=== PATIENT | female | born 1950 | race Caucasian/White ===

== ENCOUNTER 2018-03-10 08:34 | Emergency (ER) | payer MEDICARE ==
--- NOTE | 2018-03-10 10:30 | RAD ---
RIGHT KNEE 4 VIEWS: Date: 03/10/18 HISTORY: Injury with pain. FINDINGS: There are degenerative changes at the knee. Spurring from the tibial condyles, femoral condyles, tibi al spines, and patella noted. No evidence of joint effusion. The medial and lateral joint spaces are preserved. IMPRESSION: Mild to moderate degenerative changes of right knee as described. POS: [facility]
== END 2018-03-10 09:42 | disposition home or self-care (01) ==
LOC: ERS 08:34
DX: M25.561 Pain in right knee (principal); E03.9 Hypothyroidism, unspecified; M19.90 Unspecified osteoarthritis, unspecified site; F17.210 Nicotine dependence, cigarettes, uncomplicated; Z79.899 Other long term (current) drug therapy; X50.1XXA Overexertion from prolonged static or awkward postures, initial encounter; Y93.01 Activity, walking, marching and hiking

== ENCOUNTER 2018-03-26 09:30 | Outpatient (CLI) | payer MEDICARE | END 2018-03-26 09:31 | disposition home or self-care (01) | LOC: BICMRI 09:30 | PROVIDERS: ATTEND Orthopaedic Surgery | DX: M25.561 Pain in right knee (principal); M17.11 Unilateral primary osteoarthritis, right knee ==

== ENCOUNTER 2018-08-12 11:14 | Outpatient (CLI) | payer MEDICARE ==
[2018-08-12 12:45] LABS: Hemoglobin 15.3 g/dL (12.0-16.0); Mean Corpuscular HGB CONC 33.5 g/dL (32.0-36.0); Mean Corpuscular Hemoglobin 31.4 pg (27.0-31.0); Mean Corpuscular Volume 93.6 fL (78.0-98.0); Mean Platelet Volume 8.1 fL (7.4-10.4); Platelet Count 222 thou/uL (130-400); RBC Distribution Width 12.6 % (11.5-14.5); Red Blood Cell (RBC) Count 4.88 mill/uL (4.20-5.40); White Blood Cell (WBC) Count 7.7 thou/uL (4.8-10.8)
[2018-08-12 12:49] LABS: Bilirubin Negative (Negative); Blood, Urine Negative (Negative); Clarity CLEAR (Clear); Glucose, Urine (Dipstick) Negative (Negative); Leukocyte Negative (Negative); Nitrite Negative (Negative); Protein, Urine (Dipstick) Negative (Neg-Trace); Specific Gravity, Urine 1.008 (1.002-1.036); Urobilinogen 0.2 mg/dL (0.2-1.0); pH, Urine 6.5 (5.0-9.0)
[2018-08-12 12:51] LABS: Bacteria/HPF 1+ HPF (None Seen); Hyaline Casts/LPF 0-3 HYALINE CAST LPF (0-3 Hyaline); Pathc Cast-AUWi Flag 0.72 (0-2.49); RBC/HPF 0-3 HPF (0-3); Squamous Epithelial 0-3 HPF (0-3); WBC/HPF 0-3 HPF (0-3)
[2018-08-12 13:00] LABS: INR-International Normal Ratio 0.9; Prothrombin Time 11.9 SEC (12.0-14.7)
[2018-08-12 13:08] LABS: Anion Gap 12 mmol/L (10-20); BUN (Urea Nitrogen) 15 mg/dL (9.8-20.1); Calc. Creatinine Clearance 0 mL/min (70-130); Calcium 9.5 mg/dL (7.8-10.44); Carbon Dioxide 27 mmol/L (23-31); Chloride 104 mmol/L (98-107); Estimated GFR-MDRD 73; Glucose 91 mg/dL (80-115); Potassium 4.1 mmol/L (3.5-5.1); Sodium 139 mmol/L (136-145)
--- NOTE | 2018-08-12 14:18 | RAD ---
TWO VIEWS OF THE CHEST: DATE: 08/12/2018. COMPARISON: None available. HISTORY: Preoperative patient. FINDINGS: Mild degenerative change of the thoracic spine. No pneumothorax, pleural fluid, focal consolidation, or alveolar edema. IMPRESSION: No acute findings. POS: [facility]
== END 2018-08-12 11:15 | disposition home or self-care (01) ==
LOC: LABBT 11:14
PROVIDERS: ATTEND Orthopaedic Surgery
DX: Z01.818 Encounter for other preprocedural examination (principal); M17.11 Unilateral primary osteoarthritis, right knee
CPT/HCPCS: 71046; 80048; 81001; 85027; 85610; 85730; 87081; 87086; 93005; 93010

== ENCOUNTER 2018-08-12 11:15 | Inpatient (IN) | payer MEDICARE ==
[2018-08-12 11:40] VITALS: BMI 32.5
[2018-08-26] MEDS ORDERED: CEFAZOLIN/Water 2 GM/20 ML SYRINGE ONE (10:33)
[2018-08-26] MEDS ORDERED: CEFAZOLIN 1 GM VIAL ONE (10:33)
[2018-08-26] MEDS ORDERED: Vancomycin HCl 1.5 GM in Sodium Chloride 0.9% 250 ML 300 ML IVPB SCH (10:45)
[2018-08-26] MEDS ORDERED: Scopolamine 1.5 mg/72 hour Patch ONE (11:10)
[2018-08-26] MEDS ORDERED: Fentanyl 100 MCG/2 ML VIAL ONE ×4 (11:32→16:11)
[2018-08-26] MEDS ORDERED: Midazolam HCl 2 mg/2 ml Vial ONE (11:32)
[2018-08-26] MEDS ORDERED: Ondansetron HCl/PF 4 MG/2 ML Vial IVP PRN ×2 (13:32→14:16)
[2018-08-26] MEDS ORDERED: traMADol HCl 50 MG TAB PO PRN ×4 (13:32→15:26)
[2018-08-26] MEDS ORDERED: Ropivacaine HCl/PF 250 ML in Premix Bag 1 BAG NERVE BLCK SCH (13:32)
[2018-08-26] MEDS ORDERED: Promethazine HCl 25 MG/ML VIAL IM PRN ×3 (13:32→16:07)
[2018-08-26] MEDS ORDERED: Ropivacaine HCl/PF 125 ML in Sodium Chloride 0.9% 125 ML NERVE BLCK SCH (13:32)
[2018-08-26] MEDS ORDERED: Zolpidem Tartrate 5 MG TAB PO PRN ×2 (13:32→16:07)
[2018-08-26] MEDS ORDERED: HYDROcodone/Acetaminophen 10/325 mg Tablet PO PRN ×4 (13:32→15:24)
[2018-08-26] MEDS ORDERED: Fentanyl 100 MCG/2 ML VIAL IV PRN (13:34)
[2018-08-26] MEDS ORDERED: Promethazine HCl 25 MG/ML VIAL SLOW IVP PRN (14:16)
[2018-08-26] MEDS ORDERED: Bupivacaine 0.25% HCL 30 ML VIAL ONE (14:19)
[2018-08-26] MEDS ORDERED: Ropivacaine 0.5% HCl/PF (150 MG/30 ML VIAL) ONE (14:19)
[2018-08-26] MEDS ORDERED: PROPOFOL 200 MG/20 ML VIAL ONE (14:47)
[2018-08-26] MEDS ORDERED: Ondansetron HCl/PF 4 MG/2 ML Vial ONE (14:47)
[2018-08-26] MEDS ORDERED: Cepastat Lozenges 1 LOZ PO PRN (15:24)
[2018-08-26] MEDS ORDERED: Ondansetron HCl/PF 4 MG/2 ML Vial IM PRN (15:24)
[2018-08-26] MEDS ORDERED: Acetaminophen 325 MG TAB PO PRN (15:24)
[2018-08-26] MEDS ORDERED: Bisacodyl 10 MG SUPP PR PRN (15:24)
[2018-08-26] MEDS ORDERED: Milk Of Magnesia 30 ML UDCUP PO PRN (15:24)
[2018-08-26] MEDS ORDERED: Fentanyl 100 MCG/2 ML VIAL SLOW IVP PRN ×2 (15:24)
[2018-08-26] MEDS ORDERED: Promethazine HCl 25 MG/ML VIAL ONE (15:33)
[2018-08-26] MEDS ORDERED: diphenhydrAMINE 25 MG CAP PO PRN (16:07)
[2018-08-26] MEDS ORDERED: fentaNYL Citrate/PF 2,000 MCG in Sodium Chloride 0.9% 60 ML IV PRN (16:07)
[2018-08-26] MEDS ORDERED: diphenhydrAMINE 50 MG/ML VIAL IM PRN (16:07)
[2018-08-26] MEDS ORDERED: Naloxone HCl 0.4 mg/ml Vial IV PRN (16:07)
[2018-08-26] MEDS ORDERED: diphenhydrAMINE 50 MG/ML VIAL IVP PRN (16:07)
[2018-08-26] MEDS ORDERED: Communication Order-Pharmacy FS SCH (16:15)
--- NOTE | 2018-08-26 17:19 | RAD ---
RIGHT KNEE TWO VIEWS: HISTORY: Status post right knee arthroplasty. TECHNIQUE: AP and lateral views of the right knee are obtained. FINDINGS: Femoral and tibial components are in good position. No evidence of fractures or loosening seen. Art hroplasty is in good position. IMPRESSION: Status post right knee arthroplasty. POS: [facility]
[2018-08-26] MEDS ORDERED: Benzonatate 100 MG CAP PO PRN (17:30)
[2018-08-26] MEDS ORDERED: Diabetic Tussin 200 MG/10 ML UDCUP PO PRN (17:30)
[2018-08-26] MEDS ORDERED: hydrALAZINE 20 MG/ML VIAL SLOW IVP PRN (17:30)
[2018-08-26] MEDS ORDERED: Acetaminophen 500 MG TAB PO PRN (17:30)
[2018-08-26] MEDS ORDERED: cloNIDine 0.1 MG TAB PO PRN (17:30)
[2018-08-26] MEDS ORDERED: Ketorolac Tromethamine 30 MG/ML VIAL IVP SCH (18:00)
[2018-08-26] MEDS: Ondansetron HCl/PF 4 MG/2 ML Vial IVP PRN (18:29)
[2018-08-26] MEDS: Ketorolac Tromethamine 30 MG/ML VIAL IVP SCH (18:29)
[2018-08-26 19:10] LABS: Bilirubin Negative (Negative); Blood, Urine Negative (Negative); Clarity CLEAR (Clear); Glucose, Urine (Dipstick) Negative (Negative); Leukocyte Negative (Negative); Nitrite Negative (Negative); Protein, Urine (Dipstick) Negative (Neg-Trace); Specific Gravity, Urine 1.019 (1.002-1.036); Urobilinogen 0.2 mg/dL (0.2-1.0)
[2018-08-26] MEDS: CEFAZOLIN/Water 2 GM/20 ML SYRINGE SLOW IVP SCH (19:30)
[2018-08-26] MEDS: Aspirin 81 mg Enteric Coated Tablet PO SCH (20:33)
[2018-08-26] MEDS: Calcium Carbonate 600 MG TAB PO SCH (20:33)
[2018-08-26] MEDS: Pregabalin 75 MG CAP PO SCH (20:35)
[2018-08-26] MEDS ORDERED: AREDS PO SCH (21:00)
--- NOTE | 2018-08-26 21:06 | PDOC.PN ---
- Subjective Encounter Start Date: 08/26/18 Encounter Start Time: 21:04 Subjective: S/P R TKR.feels well -: pain under control w fentanyl pump. -: PCP Dr rivera - Objective MAR Reviewed: Yes Vital Signs & Weight: Vital Signs (12 hours) Temp Pulse Resp BP Pulse Ox 08/26/18 19:48 98 F 60 16 118/73 96 08/26/18 18:55 96 08/26/18 17:00 97.8 F 57 L 16 163/83 H 97 Weight Weight 214 lb Phys Exam - Physical Examination Constitutional: NAD HEENT: PERRLA, moist MMs, sclera anicteric, oral pharynx no lesions Neck: no nodes, no JVD, supple, full ROM Respiratory: no wheezing, no rales, no rhonchi, clear to auscultation bilateral Cardiovascular: RRR, no significant murmur, no rub Gastrointestinal: soft, non-tender, no distention, positive bowel sounds Musculoskeletal: no edema, pulses present Neurological: non-focal, normal sensation, moves all 4 limbs Psychiatric: normal affect, A&O x 3 Dx/Plan (1) Hypothyroidism associated with surgical procedure Code(s): E89.0 - POSTPROCEDURAL HYPOTHYROIDISM Status: Chronic (2) S/P total knee replacement Code(s): Z96.659 - PRESENCE OF UNSPECIFIED ARTIFICIAL KNEE JOINT Status: Acute Qualifiers: Laterality: right Qualified Code(s): Z96.651 - Presence of right artificial knee joint (3) Dyslipidemia Code(s): E78.5 - HYPERLIPIDEMIA, UNSPECIFIED Status: Chronic - Plan DVT proph w/SCDs ASA BID for DVT prophylaxis. -: Home meds reconciled. -: HD stable -: check CBC,CMP in am -: UA checked and clean.IM team will follow * . Review of Systems - Review of Systems Constitutional: negative: fever, chills, sweats, weakness, malaise, other ENT: negative: Ear Pain, Ear Discharge, Nose Pain, Nose Discharge, Nose Congestion, Mouth Pain, Mouth Swelling, Throat Pain, Throat Swelling, Other Respiratory: negative: Cough, Dry, Shortness of Breath, Hemoptysis, SOB with Excertion, Pleuritic Pain, Sputum, Wheezing Cardiovascular: negative: chest pain, palpitations, orthopnea, paroxysmal nocturnal dyspnea, edema, light headedness, other Gastrointestinal: negative: Nausea, Vomiting, Abdominal Pain, Diarrhea, Constipation, Melena, Hematochezia, Other Genitourinary: negative: Dysuria, Frequency, Incontinence, Hematuria, Retention , Other Musculoskeletal: negative: Neck Pain, Shoulder Pain, Arm Pain, Back Pain, Hand Pain, Leg Pain, Foot Pain, Other Neurological: negative: Weakness, Numbness, Incoordination, Change in Speech, Confusion, Seizures, Other - Medications/Allergies Allergies/Adverse Reactions: Allergies Allergy/AdvReac Type Severity Reaction Status Date / Time adhesive tape Allergy RASH, Verified 08/12/18 11:40 BLISTERS Medications: Current Medications Acetaminophen (Tylenol) 1,000 mg PO Q6H PRN PRN Reason: Mild Pain (1-3) Aspirin (Ecotrin) 81 mg PO BID [facility] Last Admin: 08/26/18 20:33 Dose: 81 mg Benzonatate (Tessalon) 100 mg PO Q6H PRN PRN Reason: Cough Bisacodyl (Dulcolax) 10 mg [place] DAILYPRN PRN PRN Reason: Constipation Calcium Carbonate (Caltrate) 600 mg PO BID [facility] Last Admin: 08/26/18 20:33 Dose: 600 mg Cefazolin Sodium (Ancef) 2 gm SLOW IVP 0200,1000,1800 [facility] Stop: 08/27/18 02:01 Last Admin: 08/26/18 19:30 Dose: 2 gm Clonidine (Catapres) 0.1 mg PO Q4H PRN PRN Reason: SBP > _160___ Diphenhydramine HCl (Benadryl) 25 mg IVP Q3H PRN PRN Reason: Itching Diphenhydramine HCl (Benadryl) 25 mg PO Q3H PRN PRN Reason: Itching Diphenhydramine HCl (Benadryl) 25 mg IM Q3H PRN PRN Reason: Itching Ferrous Gluconate (Fergon) 324 mg PO BID [facility] Fluticasone Propionate (Flonase Nasal [place]) 0 gm NASAL DAILY [facility] Guaifenesin (Robitussin Sf) 200 mg PO Q4H PRN PRN Reason: Cough Hydralazine HCl (Apresoline) 10 mg SLOW IVP Q4H PRN PRN Reason: SBP > 180 and HR < 70 Ropivacaine 125 ml/ Sodium (Chloride) 250 mls @ 0 mls/hr NERVE BLCK INF [facility] Ropivacaine 250 ml/ Device 250 mls @ 0 mls/hr NERVE BLCK INF [facility] Fentanyl Citrate 2,000 mcg/ (Sodium Chloride) 100 mls @ 0 mls/hr IV INF PRN PRN Reason: Pain Ketorolac Tromethamine (Toradol) 15 mg IVP Q6HR [facility] Stop: 08/28/18 12:01 Last Admin: 08/26/18 18:29 Dose: 15 mg Levothyroxine Sodium (Synthroid) 112 mcg PO 0600 [facility] Levothyroxine Sodium (Synthroid) 25 mcg PO 0600 [facility] Loratadine (Claritin) 10 mg PO DAILY [facility] Magnesium Hydroxide (Milk Of Magnesium) 30 ml PO DAILYPRN PRN PRN Reason: Constipation Miscellaneous Information (Communication Order-Pharmacy) 1 each FS ONE [facility] Stop: 08/27/18 16:16 Naloxone HCl (Narcan) 0.2 mg IV Q5MIN PRN PRN Reason: Opiate Reversal Ondansetron HCl (Zofran) 4 mg IM Q6H PRN PRN Reason: Nausea/Vomiting Ondansetron HCl (Zofran) 4 mg IVP Q6H PRN PRN Reason: Nausea/Vomiting Last Admin: 08/26/18 18:29 Dose: 4 mg Pregabalin (Lyrica) 75 mg PO BID [facility] Last Admin: 08/26/18 20:35 Dose: 75 mg Promethazine HCl (Phenergan) 12.5 mg IM Q4H PRN PRN Reason: Nausea/Vomiting Senna/Docusate Sodium (Senokot S) 2 tab PO BID [facility] Sodium Chloride (Flush - Normal Saline) 10 ml IVF PRN PRN PRN Reason: Saline Flush Throat Lozenges (Cepastat Lozenges) 1 luis felipe PO Q2H PRN PRN Reason: Sore Throat Venlafaxine HCl (Effexor) 75 mg PO BID [facility] Last Admin: 08/26/18 20:33 Dose: 75 mg Zolpidem Tartrate (Ambien) 5 mg PO HSPRN PRN PRN Reason: Insomnia
[2018-08-27] MEDS: Ketorolac Tromethamine 30 MG/ML VIAL IVP SCH ×5 (00:35→23:08)
--- NOTE | 2018-08-27 01:05 | OP ---
DATE OF SURGERY: 08/26/2018 PREOPERATIVE DIAGNOSIS: Right knee osteoarthritis. POSTOPERATIVE DIAGNOSIS: Right knee osteoarthritis. SURGICAL PROCEDURE: Right total knee arthroplasty. ANESTHESIA: General with femoral and sciatic nerve blocks. SURGEON: Tony Lubin M.D. CENTRAL OFFICE MAINTAINER: Jus Mccann PA-C. TOURNIQUET TIME: 76 minutes at 300 mmHg. BLOOD LOSS: 10 mL. IMPLANTS: The DePuy Sigma system was used with a size 3 femur, size 3 tibia, 8 mm poly spacer, and 3 5 mm all-poly patellar button. The [place] Simplex cement was used. COMPLICATIONS: None. DRAINS: None. SPECIMEN: None. OUTCOME: Stable total knee arthroplasty. INDICATIONS: Ms. Hernandez is a pleasant 67-year-old lady who is status post left total knee arthroplas ty and doing very well from this surgery. She is now having increasing pain in the right knee with p ain with activities of normal daily living. After discussion with patient including risks and benefi ts, we decided to proceed with total knee arthroplasty. Informed consent has been obtained. I belie ve all questions have been answered. DESCRIPTION OF PROCEDURE: Patient was brought to the operating room and a timeout performed followed by induction of general anesthesia. Next, patient was positioned supine on the OR table and a steri le prep and drape was performed of the right lower extremity. The limb was then exsanguinated with E smarch bandage, tourniquet inflated to 300 mmHg. A midline anterior knee incision was made followed by medial parapatellar arthrotomy. The patella was inverted and portion of the fat pad excised. A m edial release was performed. Next, some anterior synovium was resected from the anterior aspect of t he distal femur and then a step drill was used to obtain a starting point in the distal femur. Next, intramedullary alignment was performed to pin the first distal femoral cutting block in place. Once pinned in place, the distal cut was performed and then the sizing block was positioned on the distal femur and then pinned in place. A size 3 was found to be of appropriate size. As such, the block w as removed and the 4-in-1 cutting jig inserted and held in place with two additional pins. Next four cuts of the distal femur were performed. After completion of this, attention was placed at the prox imal tibia. Remnants of lateral medial meniscus were excised and then a step drill was used to obtai n a starting point at the proximal tibia for intramedullary jig placement. The intramedullary jig wa s then passed down the canal of the tibia and then the jig was pinned to the anterior knee. Next cut s were performed on the proximal tibia, taking care to protect the PCL. This also was sized to a siz e 3. The trial component was placed on the plateau and then pinned in place and then the proximal ti marcus further prepared with the reamer and cruciform punch. Next, a trial reduction was performed with size 3 tibial tray, a size 3 femoral component and 8 mm poly insert, which had excellent flexion, ex tension gaps, and symmetric gaps within normal rollback. Next, the patella was resurfaced freehand a nd then peg holes drilled through the patella to accept the final component. At this point, all tria l components were removed from the knee and the knee was then irrigated with 3 liters normal saline u sing Pulsavac. Cement was mixed and the tibial tray was cemented first followed by cementing of the femoral component. Excess cement was removed and then the 8 mm poly insert was inserted in the knee. The knee was brought into full extension with longitudinal compression. The patella was then cemen irving in place and the clamp applied. Once the cement had fully cured and excess cement had been remov ed, the clamp was removed. The knee again irrigated and then closed in layers, #2 Vicryl was used fo r the quadriceps mechanism followed by 2-0 Vicryl and jacy for the skin. A Xeroform gauze, Webril , and Rufino wrap dressing was applied to the knee and then patient was transferred to recovery room in stable condition. There were no complications and she tolerated the procedure well.
[2018-08-27] MEDS: CEFAZOLIN/Water 2 GM/20 ML SYRINGE SLOW IVP SCH (02:33)
[2018-08-27] MEDS: Ondansetron HCl/PF 4 MG/2 ML Vial IVP PRN (02:39)
[2018-08-27 04:15] LABS: #Lymphocytes 0.8 thou/uL (1.20-3.40); #Monocytes 0.7 thou/uL (0.11-0.59); #Neutrophils 7.3 thou/uL (1.40-6.50); %Basophils 0.2 % (0.0-1.0); %Eosinophils 0.2 % (0.0-10.0); %Lymphocytes 9.3 % (21.0-51.0); %Monocytes 7.5 % (0.0-10.0); %Neutrophils 82.8 % (42.0-75.0); Hemoglobin 11.6 g/dL (12.0-16.0); Mean Corpuscular HGB CONC 31.5 g/dL (32.0-36.0); Mean Corpuscular Hemoglobin 29.9 pg (27.0-31.0); Mean Corpuscular Volume 94.9 fL (78.0-98.0); Mean Platelet Volume 7.2 fL (7.4-10.4); Platelet Count 208 thou/uL (130-400); RBC Distribution Width 12.5 % (11.5-14.5); Red Blood Cell (RBC) Count 3.88 mill/uL (4.20-5.40); White Blood Cell (WBC) Count 8.9 thou/uL (4.8-10.8)
[2018-08-27 05:03] LABS: ALT (SGPT) 31 U/L (8-55); AST (SGOT) 39 U/L (5-34); Albumin 3.4 g/dL (3.4-4.8); Alkaline Phosphatase 78 U/L (40-150); Anion Gap 12 mmol/L (10-20); BUN (Urea Nitrogen) 17 mg/dL (9.8-20.1); Bilirubin, Total 0.5 mg/dL (0.2-1.2); Calc. Creatinine Clearance 113 mL/min (70-130); Calcium 8.5 mg/dL (7.8-10.44); Carbon Dioxide 25 mmol/L (23-31); Chloride 107 mmol/L (98-107); Estimated GFR-MDRD 78; Globulin 2.1 g/dL (2.4-3.5); Glucose 130 mg/dL (80-115); Potassium 3.9 mmol/L (3.5-5.1); Protein, Total 5.5 g/dL (6.0-8.3); Sodium 140 mmol/L (136-145)
[2018-08-27] MEDS: Levothyroxine Sodium 112 MCG TAB PO SCH (05:40)
[2018-08-27] MEDS: Levothyroxine Sodium 25 MCG TAB PO SCH (05:40)
[2018-08-27] MEDS: Ferrous Gluconate 324 MG TAB PO SCH ×2 (08:41→20:08)
[2018-08-27] MEDS: Calcium Carbonate 600 MG TAB PO SCH ×2 (08:42→20:08)
[2018-08-27] MEDS: Fluticasone Propionate Nasal Spray 16 gm Bottle NASAL SCH (08:43)
[2018-08-27] MEDS: Aspirin 81 mg Enteric Coated Tablet PO SCH ×2 (08:43→20:08)
[2018-08-27] MEDS: Loratadine 10 MG TAB PO SCH (08:44)
[2018-08-27] MEDS: Pregabalin 75 MG CAP PO SCH ×2 (08:44→20:09)
[2018-08-27] MEDS: Senokot S 8.6-50 MG TAB PO SCH ×2 (08:46→20:09)
[2018-08-27] MEDS ORDERED: Promethazine HCl 25 MG SUPP PR PRN (10:36)
[2018-08-27] MEDS ORDERED: HYDROcodone/Acetaminophen 10/325 mg Tablet PO PRN ×2 (14:35)
--- NOTE | 2018-08-27 15:19 | PDOC.PN ---
- Subjective Encounter Start Date: 08/27/18 Encounter Start Time: 15:18 Subjective: C/O NAUSEA.no vomiting.no abd pain - Objective MAR Reviewed: Yes Vital Signs & Weight: Vital Signs (12 hours) Temp Pulse Resp BP BP Pulse Ox 08/27/18 11:32 99.3 F 73 20 137/78 98 08/27/18 08:11 99.6 F 69 20 122/73 96 08/27/18 04:00 99.8 F H 81 16 116/72 97 Weight Weight 214 lb I&O: 08/26/18 08/27/18 08/28/18 06:59 06:59 06:59 Intake Total 830 Output Total 550 Balance 280 Result Diagrams: 08/27/18 03:47 08/27/18 03:47 Additional Labs: Laboratory Tests 08/12/18 08/27/18 12:35 03:47 Hgb 15.3 11.6 L Phys Exam - Physical Examination Constitutional: NAD HEENT: PERRLA, moist MMs, sclera anicteric, oral pharynx no lesions Neck: no nodes, no JVD, supple, full ROM Respiratory: no wheezing, no rales, no rhonchi, clear to auscultation bilateral Cardiovascular: RRR, no significant murmur, no rub Gastrointestinal: soft, non-tender, no distention, positive bowel sounds Musculoskeletal: no edema, pulses present Neurological: non-focal, normal sensation, moves all 4 limbs Psychiatric: normal affect, A&O x 3 Skin: no rash Dx/Plan (1) Hypothyroidism associated with surgical procedure Code(s): E89.0 - POSTPROCEDURAL HYPOTHYROIDISM Status: Chronic (2) S/P total knee replacement Code(s): Z96.659 - PRESENCE OF UNSPECIFIED ARTIFICIAL KNEE JOINT Status: Acute Qualifiers: Laterality: right Qualified Code(s): Z96.651 - Presence of right artificial knee joint (3) Dyslipidemia Code(s): E78.5 - HYPERLIPIDEMIA, UNSPECIFIED Status: Chronic - Plan PT/OT, DVT proph w/SCDs Stable.follow H/H -: Pain control. -: asa bid for DVT proophyalxis -: PRN anti emetics. -: Im team will follow * . Review of Systems - Review of Systems Constitutional: negative: fever, chills, sweats, weakness, malaise, other ENT: negative: Ear Pain, Ear Discharge, Nose Pain, Nose Discharge, Nose Congestion, Mouth Pain, Mouth Swelling, Throat Pain, Throat Swelling, Other Respiratory: negative: Cough, Dry, Shortness of Breath, Hemoptysis, SOB with Excertion, Pleuritic Pain, Sputum, Wheezing Cardiovascular: negative: chest pain, palpitations, orthopnea, paroxysmal nocturnal dyspnea, edema, light headedness, other Gastrointestinal: Nausea Genitourinary: negative: Dysuria, Frequency, Incontinence, Hematuria, Retention , Other Musculoskeletal: negative: Neck Pain, Shoulder Pain, Arm Pain, Back Pain, Hand Pain, Leg Pain, Foot Pain, Other Skin: negative: Rash, Lesions, Santos, Bruising, Other Neurological: negative: Weakness, Numbness, Incoordination, Change in Speech, Confusion, Seizures, Other - Medications/Allergies Allergies/Adverse Reactions: Allergies Allergy/AdvReac Type Severity Reaction Status Date / Time adhesive tape Allergy RASH, Verified 08/12/18 11:40 BLISTERS Medications: Current Medications Acetaminophen (Tylenol) 1,000 mg PO Q6H PRN PRN Reason: Mild Pain (1-3) Hydrocodone Bitart/Acetaminophen ([place] 10/325) 1 tab PO Q4H PRN PRN Reason: MODERATE Pain (4-6) Hydrocodone Bitart/Acetaminophen ([place] 10/325) 2 tab PO Q4H PRN PRN Reason: Severe Pain (7-10) Aspirin (Ecotrin) 81 mg PO BID [facility] Last Admin: 08/27/18 08:43 Dose: 81 mg Benzonatate (Tessalon) 100 mg PO Q6H PRN PRN Reason: Cough Bisacodyl (Dulcolax) 10 mg [place] DAILYPRN PRN PRN Reason: Constipation Calcium Carbonate (Caltrate) 600 mg PO BID [facility] Last Admin: 08/27/18 08:42 Dose: 600 mg Clonidine (Catapres) 0.1 mg PO Q4H PRN PRN Reason: SBP > _160___ Diphenhydramine HCl (Benadryl) 25 mg IVP Q3H PRN PRN Reason: Itching Diphenhydramine HCl (Benadryl) 25 mg PO Q3H PRN PRN Reason: Itching Diphenhydramine HCl (Benadryl) 25 mg IM Q3H PRN PRN Reason: Itching Ferrous Gluconate (Fergon) 324 mg PO BID [facility] Last Admin: 08/27/18 08:41 Dose: Not Given Fluticasone Propionate (Flonase Nasal [place]) 0 gm NASAL DAILY [facility] Last Admin: 08/27/18 08:43 Dose: Not Given Guaifenesin (Robitussin Sf) 200 mg PO Q4H PRN PRN Reason: Cough Hydralazine HCl (Apresoline) 10 mg SLOW IVP Q4H PRN PRN Reason: SBP > 180 and HR < 70 Ropivacaine 125 ml/ Sodium (Chloride) 250 mls @ 0 mls/hr NERVE BLCK INF [facility] Ropivacaine 250 ml/ Device 250 mls @ 0 mls/hr NERVE BLCK INF [facility] Ketorolac Tromethamine (Toradol) 15 mg IVP Q6HR [facility] Stop: 08/28/18 12:01 Last Admin: 08/27/18 12:00 Dose: 15 mg Levothyroxine Sodium (Synthroid) 112 mcg PO 0600 [facility] Last Admin: 08/27/18 05:40 Dose: 112 mcg Levothyroxine Sodium (Synthroid) 25 mcg PO 0600 [facility] Last Admin: 08/27/18 05:40 Dose: 25 mcg Loratadine (Claritin) 10 mg PO DAILY [facility] Last Admin: 08/27/18 08:44 Dose: Not Given Magnesium Hydroxide (Milk Of Magnesium) 30 ml PO DAILYPRN PRN PRN Reason: Constipation Miscellaneous Information (Communication Order-Pharmacy) 1 each FS ONE [facility] Stop: 08/27/18 16:16 Naloxone HCl (Narcan) 0.2 mg IV Q5MIN PRN PRN Reason: Opiate Reversal Ondansetron HCl (Zofran) 4 mg IM Q6H PRN PRN Reason: Nausea/Vomiting Ondansetron HCl (Zofran) 4 mg IVP Q6H PRN PRN Reason: Nausea/Vomiting Last Admin: 08/27/18 02:39 Dose: 4 mg Pregabalin (Lyrica) 75 mg PO BID [facility] Last Admin: 08/27/18 08:44 Dose: Not Given Promethazine HCl (Phenergan) 12.5 mg IM Q4H PRN PRN Reason: Nausea/Vomiting Last Admin: 08/26/18 22:51 Dose: 12.5 mg Promethazine HCl (Phenergan Suppository) 25 mg [place] 0300,0900,1500,2100 [facility] Senna/Docusate Sodium (Senokot S) 2 tab PO BID [facility] Last Admin: 08/27/18 08:46 Dose: Not Given Sodium Chloride (Flush - Normal Saline) 10 ml IVF PRN PRN PRN Reason: Saline Flush Throat Lozenges (Cepastat Lozenges) 1 luis felipe PO Q2H PRN PRN Reason: Sore Throat Venlafaxine HCl (Effexor) 75 mg PO BID [facility] Last Admin: 08/27/18 08:49 Dose: 75 mg Zolpidem Tartrate (Ambien) 5 mg PO HSPRN PRN PRN Reason: Insomnia
[2018-08-27] MEDS: Promethazine HCl 25 MG SUPP PR SCH ×2 (16:07→20:09)
[2018-08-28] MEDS: Promethazine HCl 25 MG SUPP PR SCH ×2 (03:46→09:18)
[2018-08-28] MEDS: Ketorolac Tromethamine 30 MG/ML VIAL IVP SCH (05:20)
[2018-08-28] MEDS: Levothyroxine Sodium 112 MCG TAB PO SCH (05:20)
[2018-08-28] MEDS: Levothyroxine Sodium 25 MCG TAB PO SCH (05:20)
[2018-08-28] MEDS: Pregabalin 75 MG CAP PO SCH (09:11)
[2018-08-28] MEDS: Aspirin 81 mg Enteric Coated Tablet PO SCH (09:12)
[2018-08-28] MEDS: Ferrous Gluconate 324 MG TAB PO SCH (09:12)
[2018-08-28] MEDS: Calcium Carbonate 600 MG TAB PO SCH (09:12)
[2018-08-28] MEDS: Fluticasone Propionate Nasal Spray 16 gm Bottle NASAL SCH (09:12)
[2018-08-28] MEDS: Loratadine 10 MG TAB PO SCH (09:16)
[2018-08-28] MEDS: Senokot S 8.6-50 MG TAB PO SCH (09:16)
[2018-08-28 11:59] VITALS: BP 120/60; TEMP 99.4
== END 2018-08-28 12:30 | disposition home or self-care (01) | DRG 470 ==
LOC: SURG A 08-26 09:58 → SJJU 08-26 17:20
PROVIDERS: ADMIT Orthopaedic Surgery; ATTEND Orthopaedic Surgery
PROC: 0SRC0J9 Replacement of Right Knee Joint with Synthetic Substitute, Cemented, Open Approach (ICD-10-PCS; principal; 2018-08-26)
DX: M17.11 Unilateral primary osteoarthritis, right knee (principal); E78.5 Hyperlipidemia, unspecified; E89.0 Postprocedural hypothyroidism; Z79.899 Other long term (current) drug therapy; Z91.048 Other nonmedicinal substance allergy status
CPT/HCPCS: 36415; 80053; 81003; 85025; 96374; C1713; C1776; G8978-GP-CM; G8979-GP-CK; J0690; J1885; J2250; J2405; J2550; J2704; J2795; J3010; J3370; J7050; S0020

== ENCOUNTER 2018-08-21 11:09 | Outpatient (CLI) | payer MEDICARE | END 2018-08-21 11:10 | disposition home or self-care (01) | LOC: LABBT 11:09 | PROVIDERS: ATTEND Orthopaedic Surgery | DX: Z01.812 Encounter for preprocedural laboratory examination (principal); M17.11 Unilateral primary osteoarthritis, right knee | CPT/HCPCS: 86850; 86900; 86901 ==

== ENCOUNTER 2018-08-22 10:25 | Outpatient (CLI) | payer MEDICARE | END 2018-08-22 10:26 | disposition home or self-care (01) | LOC: BICMAMMO 10:25 | PROVIDERS: ATTEND Family Medicine | DX: Z12.31 Encounter for screening mammogram for malignant neoplasm of breast (principal) | CPT/HCPCS: 77063; 77067 ==

== ENCOUNTER 2019-08-26 13:25 | Outpatient (CLI) | payer MEDICARE ==
--- NOTE | 2019-08-26 14:44 | MMO ---
Bilateral MAMMO Bilat Screen [facility]. CLINICAL HISTORY: Patient is 68 years old and is seen for screening. The patient has no family history of breast cancer. The patient has no personal history of cancer. VIEWS: The views performed were: bilateral craniocaudal with tomosynthesis and bilateral mediolateral oblique with tomosynthesis. FILMS COMPARED: The present examination has been compared to prior imaging studies performed at [facility] on 08/15/2016, 08/21/2017, 08/23/2017 and 08/22/2018. This study has been interpreted with the assistance of computer-aided detection. MAMMOGRAM FINDINGS: The breasts are heterogeneously dense, which could obscure a lesion on mammography. There are stable benign appearing calcifications seen in both breasts. There are no suspicious masses, suspicious calcifications, or new areas of architectural distortion. IMPRESSION: THERE IS NO MAMMOGRAPHIC EVIDENCE OF MALIGNANCY. A ROUTINE FOLLOW-UP MAMMOGRAM IN 1 YEAR IS RECOMMENDED. THE RESULTS OF THIS EXAM WERE SENT TO THE PATIENT. ACR BI-RADS Category 2 - Benign finding MAMMOGRAPHY NOTE: 1. A negative mammogram report should not delay a biopsy if a dominant of clinically suspicious mass is present. 2. Approximately 10% to 15% of breast cancers are not detected by mammography. 3. Adenosis and dense breasts may obscure an underlying neoplasm. Reported by: DARIELA PEARL MD Electonically Signed: [id number]
== END 2019-08-26 13:26 | disposition home or self-care (01) ==
LOC: BICMAMMO 13:25
PROVIDERS: ATTEND Family Medicine
DX: Z12.31 Encounter for screening mammogram for malignant neoplasm of breast (principal)
CPT/HCPCS: 77063; 77067

== ENCOUNTER 2020-09-23 13:04 | Outpatient (CLI) | payer MEDICARE ==
--- NOTE | 2020-09-23 13:49 | ULT ---
EXAM: US Breast Limited Lt PROVIDED CLINICAL HISTORY: Left breast palpable abnormalities COMPARISON: Prior mammograms including concurrently performed diagnostic mammogram FINDINGS: Limited sonographic interrogation was performed in the region of palpable concern. Circumscribed hypo echoic masses are present in the region of palpable concern, which appear mammographically stable over multiple prior examinations. These demonstrate sonographic and mammographic characteristics comp atible with fibroadenomas. IMPRESSION: Palpable abnormality corresponds to adjacent benign fibroadenomas. Return to annual screening is marko mmended. BI-RADS 2 -- benign findings
--- NOTE | 2020-09-23 13:50 | MMO ---
Bilateral MAMMO Bilat Diag [facility]. CLINICAL HISTORY: Patient is 69 years old and is seen for diagnostic exam. The patient has no family history of breast cancer. The patient has no personal history of cancer. The patient has a history of left needle biopsy in September, - benign. VIEWS: The views performed were: bilateral craniocaudal with tomosynthesis; bilateral mediolateral oblique with tomosynthesis; and bilateral mediolateral with tomosynthesis. FILMS COMPARED: The present examination has been compared to prior imaging studies performed at [facility] on 08/22/2018, 08/26/2019 and 09/23/2020, and at [facility] on 09/11/2017. This study has been interpreted with the assistance of computer-aided detection. MAMMOGRAM FINDINGS: The breasts are heterogeneously dense, which could obscure a lesion on mammography. Finding 1: There are two stable oval masses with circumscribed margins seen in the sub-areolar region of the left breast. These correspond to the region of palpable concern. These are mammographically stable and demonstrate an ultrasound appearance compatible with fibroadenomas. Finding 2: There are stable benign appearing calcifications seen in both breasts. There are no suspicious masses, suspicious calcifications, or new areas of architectural distortion. IMPRESSION: THERE IS NO MAMMOGRAPHIC EVIDENCE OF MALIGNANCY. A ROUTINE FOLLOW-UP MAMMOGRAM IN 1 YEAR IS RECOMMENDED. THE RESULTS OF THIS EXAM WERE SENT TO THE PATIENT. ACR BI-RADS Category 2 - Benign finding MAMMOGRAPHY NOTE: 1. A negative mammogram report should not delay a biopsy if a dominant of clinically suspicious mass is present. 2. Approximately 10% to 15% of breast cancers are not detected by mammography. 3. Adenosis and dense breasts may obscure an underlying neoplasm. Reported by: DARIELA PEARL MD Electonically Signed: [id number]
== END 2020-09-23 13:05 | disposition home or self-care (01) ==
LOC: BICMAMMO 13:04
PROVIDERS: ATTEND Family Medicine
DX: N63.42 Unspecified lump in left breast, subareolar (principal); D24.2 Benign neoplasm of left breast
CPT/HCPCS: 76642; 77066; G0279

== ENCOUNTER 2021-09-26 09:56 | Outpatient (CLI) | payer MEDICARE | END 2021-09-26 09:57 | disposition home or self-care (01) | LOC: BICMAMMO 09:56 | PROVIDERS: ATTEND Family Medicine | DX: Z12.31 Encounter for screening mammogram for malignant neoplasm of breast (principal); N64.89 Other specified disorders of breast; Z91.89 Other specified personal risk factors, not elsewhere classified | CPT/HCPCS: 77063; 77067 ==

== ENCOUNTER 2021-10-05 13:59 | Outpatient (CLI) | payer MEDICARE | END 2021-10-05 14:00 | disposition home or self-care (01) | LOC: BICMAMMO 13:59 | PROVIDERS: ATTEND Family Medicine | DX: N64.89 Other specified disorders of breast (principal) | CPT/HCPCS: 77065; G0279 ==

== ENCOUNTER 2022-05-29 14:13 | Outpatient (CLI) | payer MEDICARE ==
[2022-05-29 15:06] LABS: Hemoglobin 13.4 g/dL (12.0-15.5); Mean Corpuscular HGB CONC 32.8 g/dL (32.0-36.0); Mean Corpuscular Hemoglobin 30.6 pg (27.0-33.0); Mean Corpuscular Volume 93.2 fl (81.6-98.3); Mean Platelet Volume 9.8 fl (7.4-10.4); Platelet Count 245 10x3/uL (150-450); RBC Distribution Width 13.5 % (11.5-14.5); Red Blood Cell (RBC) Count 4.38 10x6/uL (3.90-5.03)
[2022-05-29 15:32] LABS: Anion Gap 12 mmol/L (10-20); BUN (Urea Nitrogen) 13 mg/dL (9.8-20.1); Calc. Creatinine Clearance 0 mL/min (70-130); Calcium 9.4 mg/dL (7.8-10.44); Carbon Dioxide 29 mmol/L (23-31); Chloride 102 mmol/L (98-107); Estimated GFR 75; Glucose 96 mg/dL (83-110); Potassium 4.2 mmol/L (3.5-5.1); Sodium 139 mmol/L (136-145)
[2022-05-29 15:45] LABS: INR-International Normal Ratio 0.9; PTT 25.5 sec (22.0-33.0); Prothrombin Time 9.6 sec (9.5-12.1)
== END 2022-05-29 14:14 | disposition home or self-care (01) ==
LOC: LABBT 14:13
PROVIDERS: ATTEND Surgery
DX: Z01.818 Encounter for other preprocedural examination (principal); M54.16 Radiculopathy, lumbar region; M48.062 Spinal stenosis, lumbar region with neurogenic claudication; Z20.822 Contact with and (suspected) exposure to COVID-19
CPT/HCPCS: 80048; 85027; 85610; 85730; 87811; 93005; 93010

== ENCOUNTER 2022-06-01 06:50 | Observation (INO) | payer MEDICARE ==
[2022-05-30 14:28] VITALS: BMI 33.6
[2022-06-01] MEDS ORDERED: Scopolamine 1.5 mg/72 hour Patch ONE (07:28)
[2022-06-01] MEDS ORDERED: Acetaminophen/Codeine 30-300mg Tablet PO PRN (08:12)
[2022-06-01] MEDS ORDERED: Morphine 2 MG/ML VIAL SLOW IVP PRN (08:12)
[2022-06-01] MEDS ORDERED: Acetaminophen 325 MG TAB PO PRN (08:12)
[2022-06-01] MEDS ORDERED: Ondansetron PF 4 MG/2 ML Vial IVP PRN (08:12)
[2022-06-01] MEDS ORDERED: traMADol HCl 50 MG TAB PO PRN (08:12)
[2022-06-01] MEDS ORDERED: Promethazine HCl 12.5 MG in Sodium Chloride 0.9% 50 ML IVPB PRN (08:15)
[2022-06-01] MEDS ORDERED: Bisacodyl 5 MG TAB PO PRN (08:15)
[2022-06-01] MEDS ORDERED: Polyethylene Glycol 3350 17 GM Packet PO PRN (08:15)
[2022-06-01] MEDS ORDERED: Bisacodyl 10 MG SUPP PR PRN (08:15)
[2022-06-01] MEDS ORDERED: Promethazine HCl 12.5 MG SUPP PR PRN (08:15)
[2022-06-01] MEDS ORDERED: tiZANidine HCl 4 MG TAB PO PRN (08:17)
[2022-06-01] MEDS ORDERED: Chloraseptic Spray 180 ml Bottle PO PRN (08:18)
[2022-06-01] MEDS ORDERED: [UNRECOGNIZED DRUG - OTHER] PO SCH (09:00)
[2022-06-01] MEDS ORDERED: Thrombin 5000 UNITS/5 ML VIAL ONE (09:05)
[2022-06-01] MEDS ORDERED: fentaNYL Citrate/PF 100 MCG/2 ML SYRINGE ONE ×2 (09:07→11:26)
[2022-06-01] MEDS ORDERED: Midazolam HCl 2 mg/2 ml Vial ONE (09:37)
[2022-06-01] MEDS ORDERED: Sodium Chloride 0.9% 100 ML ONE (09:43)
[2022-06-01] MEDS ORDERED: Propofol 1,000 MG/100 ML VIAL IV ONE (09:43)
[2022-06-01] MEDS ORDERED: CEFAZOLIN 2 GM VIAL ONE (09:43)
[2022-06-01] MEDS ORDERED: Famotidine/PF 20 mg/2ml Vial ONE (09:56)
[2022-06-01] MEDS ORDERED: Lidocaine 1% PF 5 ML VIAL ONE (09:58)
[2022-06-01] MEDS ORDERED: Glycopyrrolate 0.2 MG/ML 5 ML SYRINGE ONE (09:58)
[2022-06-01] MEDS ORDERED: Metoclopramide HCl 10 MG/2 ML VIAL ONE (09:58)
[2022-06-01] MEDS ORDERED: Ketorolac Tromethamine 30 MG/ML VIAL ONE (09:58)
[2022-06-01] MEDS ORDERED: Dexamethasone 20 MG/5 ML VIAL ONE (09:58)
[2022-06-01] MEDS ORDERED: PROPOFOL 200 MG/20 ML VIAL ONE (09:58)
[2022-06-01] MEDS ORDERED: Ondansetron PF 4 MG/2 ML Vial ONE (09:58)
[2022-06-01] MEDS ORDERED: Rocuronium Bromide 10 MG/ML (10ML VIAL) ONE (09:58)
[2022-06-01] MEDS ORDERED: Propofol 500 MG/50 ML VIAL ONE (11:27)
[2022-06-01] MEDS: Loratadine 10 MG TAB PO SCH (13:53)
[2022-06-01] MEDS: CeleCOXIB 100 MG CAP PO SCH ×2 (13:53→21:26)
[2022-06-01] MEDS: Sodium Chloride 0.9% 1,000 ML IV SCH ×2 (13:53→22:37)
[2022-06-01] MEDS: Fluticasone Propionate Nasal Spray 16 gm Bottle NASAL SCH (13:53)
[2022-06-01] MEDS: Calcium Carbonate 600 MG TAB PO SCH ×2 (13:53→21:25)
[2022-06-01] MEDS: Docusate 100 MG CAP PO SCH ×2 (13:53→22:33)
[2022-06-01] MEDS: Pregabalin 75 MG CAP PO SCH ×3 (13:54→21:27)
[2022-06-01] MEDS: Venlafaxine 75 MG TAB PO SCH ×3 (13:54→22:35)
[2022-06-01] MEDS: Vit A,C & E/Lutein/Minerals Tablet PO SCH ×2 (13:54→21:25)
[2022-06-01] MEDS: HYDROcodone/Acetaminophen 7.5/325 mg Tablet PO PRN (13:58)
[2022-06-01] MEDS: CEFAZOLIN 2 GM in Sodium Chloride 0.9% 100 ML IVPB SCH ×2 (13:59→21:28)
[2022-06-01] MEDS: Cepastat Lozenges 1 LOZ PO PRN ×2 (18:49→21:49)
[2022-06-02] MEDS ORDERED: Levothyroxine Sodium 112 MCG TAB PO SCH (06:00)
[2022-06-02] MEDS ORDERED: Levothyroxine Sodium 25 MCG TAB PO SCH (06:00)
[2022-06-02] MEDS: CeleCOXIB 100 MG CAP PO SCH (08:38)
[2022-06-02] MEDS: Calcium Carbonate 600 MG TAB PO SCH (08:38)
[2022-06-02] MEDS: Pregabalin 75 MG CAP PO SCH (08:38)
[2022-06-02] MEDS: HYDROcodone/Acetaminophen 7.5/325 mg Tablet PO PRN (08:38)
[2022-06-02] MEDS: Loratadine 10 MG TAB PO SCH (08:39)
[2022-06-02] MEDS: Vit A,C & E/Lutein/Minerals Tablet PO SCH (08:39)
[2022-06-02] MEDS: Fluticasone Propionate Nasal Spray 16 gm Bottle NASAL SCH (08:39)
[2022-06-02] MEDS: Docusate 100 MG CAP PO SCH (08:39)
[2022-06-02] MEDS: Venlafaxine 75 MG TAB PO SCH (08:39)
[2022-06-02 09:11] VITALS: BP 120/70; TEMP 98.3
== END 2022-06-02 13:19 | disposition home or self-care (01) ==
LOC: SDC 06:50 → SURG B 08:12
PROVIDERS: ADMIT Surgery; ATTEND Surgery
PROC: 01NB0ZZ Release Lumbar Nerve, Open Approach (ICD-10-PCS; principal; 2022-06-01)
DX: M48.062 Spinal stenosis, lumbar region with neurogenic claudication (principal); M54.16 Radiculopathy, lumbar region; E89.0 Postprocedural hypothyroidism; Z79.890 Hormone replacement therapy; Z79.899 Other long term (current) drug therapy; Z91.048 Other nonmedicinal substance allergy status
CPT/HCPCS: 76000; J0690; J1100; J1885; J2250; J2405; J2704; J2710; J2765; J3370; J3490; S0028

== ENCOUNTER 2022-11-22 13:14 | Outpatient (CLI) | payer MEDICARE | END 2022-11-22 13:15 | disposition home or self-care (01) | LOC: TBSIIMAG 13:14 | PROVIDERS: ATTEND Surgery | DX: M47.26 Other spondylosis with radiculopathy, lumbar region (principal); R29.890 Loss of height; M51.16 Intervertebral disc disorders with radiculopathy, lumbar region | CPT/HCPCS: 72120; 72148 ==

== ENCOUNTER 2022-12-04 10:22 | Outpatient (CLI) | payer MEDICARE | END 2022-12-04 10:23 | disposition home or self-care (01) | LOC: BICRAD 10:22 | PROVIDERS: ATTEND Family Medicine | DX: S02.85XA Fracture of orbit, unspecified, initial encounter for closed fracture (principal) | CPT/HCPCS: 70150 ==

== ENCOUNTER 2023-01-11 11:16 | Emergency (ER) | payer OTHER, MEDICARE | END 2023-01-11 15:29 | disposition home or self-care (01) | LOC: ERS 11:16 | DX: S02.2XXA Fracture of nasal bones, initial encounter for closed fracture (principal); S02.401A Maxillary fracture, unspecified side, initial encounter for closed fracture; S01.511A Laceration without foreign body of lip, initial encounter; S01.512A Laceration without foreign body of oral cavity, initial encounter; E03.9 Hypothyroidism, unspecified; F17.210 Nicotine dependence, cigarettes, uncomplicated; Z79.899 Other long term (current) drug therapy; W01.0XXA Fall on same level from slipping, tripping and stumbling without subsequent striking against object, initial encounter | CPT/HCPCS: 70450; 70486; 72125; 94760 ==

== ENCOUNTER → 2023-08-23 | Day surgery (SDC) | payer MEDICARE | LOC: BICULT 12:31 | PROVIDERS: ATTEND Family Medicine | PROC: 0H9T0ZX Drainage of Right Breast, Open Approach, Diagnostic (ICD-10-PCS; principal; 2023-08-23) | DX: C50.811 Malignant neoplasm of overlapping sites of right female breast (principal); Z17.0 Estrogen receptor positive status [ER+] | CPT/HCPCS: 19083; 88305; 88341; 88342 ==

== ENCOUNTER 2023-10-09 08:11 | Outpatient (CLI) | payer MEDICARE ==
[2023-10-09 10:00] LABS: #Basophils 0.1 10x3/uL (0.0-0.2); #Eosinphils 0.2 10x3/uL (0.0-0.5); #Monocytes 0.4 10x3/uL (0.0-1.1); #Neutrophils 3.7 10x3/uL (1.5-8.4); %Basophils 0.9 % (0.0-2.0); %Eosinophils 2.9 % (0.0-6.0); %Lymphocytes 23.4 % (18.0-47.0); %Monocytes 6.4 % (0.0-10.0); %Neutrophils 66.2 % (40.0-75.0); Hematocrit 41.2 % (34.9-44.5); Mean Corpuscular HGB CONC 31.6 g/dL (32.0-36.0); Mean Corpuscular Hemoglobin 30.7 pg (27.0-33.0); Mean Corpuscular Volume 97.4 fl (81.6-98.3); Mean Platelet Volume 9.1 fl (7.4-10.4); Platelet Count 245 10x3/uL (150-450); RBC Distribution Width 12.9 % (11.5-14.5); Red Blood Cell (RBC) Count 4.23 10x6/uL (3.90-5.03); White Blood Cell (WBC) Count 5.6 10x3/uL (3.5-10.5)
[2023-10-09 10:22] LABS: Anion Gap 13 mmol/L (10-20); BUN (Urea Nitrogen) 18 mg/dL (9.8-20.1); Calc. Creatinine Clearance 0 mL/min (70-130); Carbon Dioxide 29 mmol/L (23-31); Chloride 103 mmol/L (98-107); Estimated GFR 70; Glucose 107 mg/dL (83-110); Potassium 5.1 mmol/L (3.5-5.1); Sodium 140 mmol/L (136-145)
== END 2023-10-09 08:12 | disposition home or self-care (01) ==
LOC: LABBT 08:11
PROVIDERS: ATTEND Specialist
DX: Z01.818 Encounter for other preprocedural examination (principal); C50.911 Malignant neoplasm of unspecified site of right female breast
CPT/HCPCS: 71046; 80048; 85025; 93005; 93010

== ENCOUNTER → 2023-10-11 | Day surgery (SDC) | payer MEDICARE ==
[2023-10-09 09:08] VITALS: BMI 33.4
[~2023-10-11] MED LIST: Acetaminophen 500 MG TAB ONE; Bupivacaine 0.25% HCL 30 ML VIAL ONE; CEFAZOLIN 2 GM VIAL ONE; Dexamethasone 20 MG/5 ML VIAL ONE; Dexmedetomidine 200 MCG/2 ML VIAL ONE; EPINEPHrine 1 MG/ML VIAL ONE; Famotidine/PF 20 mg/2ml Vial ONE; Isosulfan Blue 50 MG/5 ML VIAL ONE; Ketamine In 0.9 % NaCl 50 MG/5 ML SYRINGE ONE; Ketorolac Tromethamine 30 MG (1 mL) VIAL ONE; Lidocaine 1% MPF 2 ML VIAL ONE; Lidocaine 1% PF 5 ML VIAL ONE; Lidocaine 2% PF 5 ML VIAL ONE; Metoclopramide HCl 10 MG (2 mL) VIAL ONE; Ondansetron PF 4 MG/2 ML Vial ONE; PHENYLEPHRINE-NS 100 MCG/ML 10 ML SYRINGE ONE; PROPOFOL 20 ML ONE; PROPOFOL 200 MG/20 ML VIAL ONE; Promethazine HCl 25 MG SUPP PR SCH; Propofol 1,000 MG/100 ML VIAL IV ONE; Scopolamine 1 mg/72 hour Patch ONE; Sodium Chloride 0.9% 100 ML ONE; ePHEDrine Sulfate 50 MG/10 ML VIAL ONE; fentaNYL 50 mcg/mL 1 mL Vial ONE
== END ==
LOC: SDC 06:57
PROVIDERS: ATTEND Specialist
PROC: 0HBT0ZZ Excision of Right Breast, Open Approach (ICD-10-PCS; principal; 2023-10-11)
PROC: 07B50ZZ Excision of Right Axillary Lymphatic, Open Approach (ICD-10-PCS; 2023-10-11)
DX: C50.811 Malignant neoplasm of overlapping sites of right female breast (principal); C77.3 Secondary and unspecified malignant neoplasm of axilla and upper limb lymph nodes; E89.0 Postprocedural hypothyroidism; F17.200 Nicotine dependence, unspecified, uncomplicated; Z91.048 Other nonmedicinal substance allergy status; Z96.651 Presence of right artificial knee joint; Z98.890 Other specified postprocedural states; Z79.899 Other long term (current) drug therapy; Z79.890 Hormone replacement therapy
CPT/HCPCS: 19301; 38525; 38900; 76098; 78195; A9541; C1713; J0171; J3010; Q9968; 88307; 88342; J1100; J1885; J2001; J2405; J2704; J2765; J3490; S0020; S0028

== ENCOUNTER 2024-03-12 09:00 | Outpatient (CLI) | payer MEDICARE | END 2024-03-12 09:01 | disposition home or self-care (01) | LOC: BICMAMMO 09:00 | PROVIDERS: ATTEND Internal Medicine Hematology & Oncology | DX: Z13.820 Encounter for screening for osteoporosis (principal); C50.811 Malignant neoplasm of overlapping sites of right female breast | CPT/HCPCS: 77080 ==

== ENCOUNTER 2024-10-10 08:12 | Outpatient (CLI) | payer MEDICARE | END 2024-10-10 08:13 | disposition home or self-care (01) | LOC: BICMAMMO 08:12 | PROVIDERS: ATTEND Specialist | DX: Z08 Encounter for follow-up examination after completed treatment for malignant neoplasm (principal); Z85.3 Personal history of malignant neoplasm of breast | CPT/HCPCS: 77065; G0279 ==